=== PATIENT | male | born 1985 | race Caucasian/White ===

== ENCOUNTER 2019-01-28 18:30 | Emergency (ER) | payer SELFPAY ==
[2019-01-28 18:54] VITALS: BP 144/89; PULSE 85; RESP 14; TEMP 37.1; O2SAT 98; BMI 19.1
--- NOTE | 2019-01-28 19:08 | ED_ITS ---
HPI - Nausea/Vomiting/Diarrhea General Chief complaint: Nausea/Vomiting/Diarrhea Stated complaint: thinks food poisoning Time Seen by Provider: 01/28/19 18:54 Source: patient Mode of arrival: Ambulatory Limitations: no limitations History of Present Illness HPI Narrative: Patient is a 33-year-old male who presents with abdominal pain and diarrhea and vomiting ongoing for last 5-6 days. He says he initially woke up drenched in sweat she has for wet he had multiple episodes of large amount of diarrhea and loose stool. He also vomited numerous times. His he has continued to have episodes of diarrhea although it has tapered off. He says he has the urge to go on his just going a little bit today but that has happened 15 times more. He did have about 3 days where there was some blood mixed in his stool. He also vomited numerous times throughout some bright red blood as well but that has since stopped his no longer vomiting blood. He received prescription of Zofran from the [facility] yesterday that has seems to have helped his nausea and vomiting. However he still has intense lower abdominal pain and frequent urges. MD complaint: nausea, vomiting, diarrhea and abdominal pain Onset (ago): day(s) (5) Description of Vomiting: bilious and bloody Description of Diarrhea: watery and bloody (bright red) Associated Abdominal Pain: Yes Location of pain: diffuse Severity: severe Related Data Previous Rx's Medication Instructions Recorded ciprofloxacin HCl [Cipro] 500 mg PO BID #20 tab 01/28/19 ondansetron 4 mg PO Q8H PRN #10 tab 01/28/19 prochlorperazine maleate 5 mg PO TID PRN #10 tab 01/28/19 Allergies Allergy/AdvReac Type Severity Reaction Status Date / Time Sulfa (Sulfonamide Allergy Verified 01/28/19 18:54 Antibiotics) Review of Systems Review of Systems Narrative: GENERAL: Denies chills, fatigue, malaise, fever, sweats, travel HEENT: Denies sinus pain, ear pain, sore throat, difficulty swallowing, neck pain RESPIRATORY: Denies dyspnea, cough, wheezing, hemoptysis, sputum. CARDIOVASCULAR: Denies chest pain, palpitations, orthopnea, edema GASTROINTESTINAL: See HPI : Denies dysuria, frequency, incontinence, hematuria, urinary retention, flank pain. MUSCULOSKELETAL: Denies weakness, joint pain, or bony pain SKIN: No rash, no erythema, no pruritus NEUROLOGIC: Denies weakness, dizziness, headache, numbness, change in speech, confusion PSYCHIATRIC: No concerning psychosocial issues. 12 point review of systems is negative except for those stated above and HPI Patient History Medical/Surgical History Medical History Patient denies medical problems (Acute) Social History Smoking Status: Current every day smoker Family/Social History Social History Smoking Status: Current every day smoker alcohol intake frequency: 0-2 drinks per day Substance Use Type: does not use Exam Initial Vital Signs Initial Vital Signs: Vital Signs Temperature 98.8 F 01/28/19 18:54 Pulse Rate 85 01/28/19 18:54 Respiratory Rate 14 01/28/19 18:54 Blood Pressure 144/89 H 01/28/19 18:54 Pulse Oximetry 98 01/28/19 18:54 GENERAL: Thin young well-appearing male and in no acute distress. HEENT: Head atraumatic,EOMI, pupils reactive, face symmetric, moist mucous membranes CARDIOVASCULAR: Regular rate and rhythm without murmurs, rubs or gallops. RESPIRATORY: Breath sounds equal bilaterally, no wheezes rales or rhonchi. ABDOMEN: Soft, mild tenderness no guarding or rebound EXTREMITIES: Normal range of motion, no clubbing or edema. Neurovascularly intact NEUROLOGICAL: Alert and oriented x4.Normal gait and speech. Cranial nerves II through XII grossly intact. SKIN: Warm, dry, no laceration, no petechiae, no rashes or lesions. Course Orders Ordered: ED Orders 01/28/19 19:25 Complete Blood Count AUTO DIFF Stat Comprehensive Metabolic Panel Stat Lipase Stat 01/28/19 20:02 Stool Culture Stat 01/28/19 20:04 GI Panel (Film Array) Stat 01/28/19 20:15 Urine Microscopic Stat Discontinued Medications Acetaminophen (Tylenol) 975 mg PO NOW ONE Stop: 01/28/19 22:27 Last Admin: 01/28/19 22:52 Dose: 975 mg Documented by: NELLY Sodium Chloride (Normal Saline 0.9%) 1,000 mls @ 1,000 mls/hr IV BOLUS ONE Stop: 01/28/19 19:56 Last Infusion: 01/28/19 20:46 Dose: 0 mls/hr Documented by: Admin: 01/28/19 19:41 Dose: 1,000 mls/hr Documented by: CHRIS Ketorolac Tromethamine (Toradol) 30 mg IV NOW ONE Stop: 01/28/19 19:07 Last Admin: 01/28/19 19:42 Dose: 30 mg Documented by: CHRIS Levofloxacin (Levaquin) 500 mg PO NOW ONE Stop: 01/28/19 21:57 Last Admin: 01/28/19 22:52 Dose: 500 mg Documented by: NELLY Ondansetron HCl (Zofran) 4 mg IV NOW ONE Stop: 01/28/19 18:58 Last Admin: 01/28/19 19:41 Dose: 4 mg Documented by: CHRIS Ondansetron HCl (Zofran Odt Prepack) 1 bottle MISC SEEINSTR ONE Stop: 01/28/19 22:10 Last Admin: 01/28/19 22:52 Dose: 1 bottle Documented by: NELLY Pantoprazole Sodium (Protonix) 40 mg IV NOW ONE Stop: 01/28/19 19:07 Last Admin: 01/28/19 19:42 Dose: 40 mg Documented by: CHRIS Vital Signs Vital signs: Vital Signs - 8 hr 01/28/19 18:54 01/28/19 20:51 01/29/19 00:13 Temperature 98.8 F Pulse Rate 85 81 Respiratory Rate 14 18 Blood Pressure 144/89 H 123/71 Blood Pressure [Left Arm] 125/77 Pulse Oximetry 98 98 MDM - Nausea/Vomiting/Diarrhea Lab Data Attestation: I reviewed the patient's lab results. Result diagrams: 01/28/19 19:25 01/28/19 19:25 Labs: Lab Results 01/28/19 01/28/19 01/28/19 Range/Units 19:25 19:25 19:25 WBC 9.0 (4.5-11.0) X10^3/uL RBC 5.08 (4.5-5.9) X10^6/uL Hgb 15.9 (13.5-17.5) g/dL Hct 44.3 (41-53) % MCV 87.2 (80-100) fL MCH 31.3 (26-34) PG MCHC 35.9 (30-36) % RDW 12.4 (11.6-14.8) % Plt Count 99 L (150-400) X10^3/uL Neut % (Auto) 74.5 (50-75) % Lymph % (Auto) 9.8 L (25-40) % [place] % (Auto) 15.4 H (3-14) % Eos % (Auto) 0.0 L (2-4) % Baso % (Auto) 0.3 (0-2) % Neut # (Auto) 6700 (2023-9712) /uL Lymph # (Auto) 900 L (3255-7585) /uL [place] # (Auto) 1400 H (0-900) /uL Eos # (Auto) 0 (0-450) /uL Baso # (Auto) 0 (0-100) /uL Sodium 128 L (137-145) mmol/L Potassium 4.1 (3.4-5.1) mmol/L Chloride 92 L (98-107) mmol/L Carbon Dioxide 23 (22-32) mmol/L BUN 9 (9-20) mg/dL Creatinine 0.70 (0.66-1.25) mg/dL Estimated GFR > 60.0 (>60) mL/min BUN/Creatinine Ratio 12.9 (6-22) Glucose 108 H (70-100) mg/dL Calcium 9.0 (8.4-10.2) mg/dL Total Bilirubin 0.8 (0.2-1.3) mg/dL AST 273 H (17-59) IU/L ALT 68 (21-72) IU/L Alkaline Phosphatase 71 (38-126) U/L Total Protein 7.0 (6.3-8.2) g/dL Albumin 4.2 (3.5-5.0) g/dL Globulin 2.8 (1.7-4.1) g/dL Albumin/Globulin Ratio 1.5 (1.0-2.8) Lipase 489 H (23-300) U/L Urine RBC (0-5/HPF) Urine WBC (0-5/HPF) Amorphous Sediment Urine Bacteria (None) Ur Culture Indicated? Stl C. cayetanensis PCR (Not Detect) Stool Rotavirus (PCR) (Not Detect) Stool Adenovirus (PCR) (Not Detect) Stool Astrovirus (PCR) (Not Detect) Stool Cryptosporidium PCR (Not Detect) Stl E.coli Shiga Tox PCR (Not Detect) St Sh/Enteroin Ecoli PCR (Not Detect) Stool E coli O157 PCR Stl Enterotoxigenic E PCR (Not Detect) Stool EPEC (PCR) (Not Detect) Stl E. histolytica PCR (Not Detect) Stool Giardia Lamblia PCR (Not Detect) Stl P. shigelloides PCR (Not Detect) St Y.enterocolitica PCR (Not Detect) Stool Vibrio (PCR) (Not Detect) Stl Vibrio cholerae PCR (Not Detect) Stl Enteroaggr Ecoli PCR (Not Detect) Stl Norovirus GI/GII PCR (Not Detect) Campylobacter (PCR) (Not Detect) C. difficile Tox (PCR) (Not Detect) Salmonella (PCR) (Not Detect) 01/28/19 01/28/19 Range/Units 20:04 20:15 WBC (4.5-11.0) X10^3/uL RBC (4.5-5.9) X10^6/uL Hgb (13.5-17.5) g/dL Hct (41-53) % MCV (80-100) fL MCH (26-34) PG MCHC (30-36) % RDW (11.6-14.8) % Plt Count (150-400) X10^3/uL Neut % (Auto) (50-75) % Lymph % (Auto) (25-40) % [place] % (Auto) (3-14) % Eos % (Auto) (2-4) % Baso % (Auto) (0-2) % Neut # (Auto) (2749-2928) /uL Lymph # (Auto) (8148-3475) /uL [place] # (Auto) (0-900) /uL Eos # (Auto) (0-450) /uL Baso # (Auto) (0-100) /uL Sodium (137-145) mmol/L Potassium (3.4-5.1) mmol/L Chloride (98-107) mmol/L Carbon Dioxide (22-32) mmol/L BUN (9-20) mg/dL Creatinine (0.66-1.25) mg/dL Estimated GFR (>60) mL/min BUN/Creatinine Ratio (6-22) Glucose (70-100) mg/dL Calcium (8.4-10.2) mg/dL Total Bilirubin (0.2-1.3) mg/dL AST (17-59) IU/L ALT (21-72) IU/L Alkaline Phosphatase (38-126) U/L Total Protein (6.3-8.2) g/dL Albumin (3.5-5.0) g/dL Globulin (1.7-4.1) g/dL Albumin/Globulin Ratio (1.0-2.8) Lipase (23-300) U/L Urine RBC None seen (0-5/HPF) Urine WBC 1-5/hpf (0-5/HPF) Amorphous Sediment 1+ Urine Bacteria None seen (None) Ur Culture Indicated? Cult not indicated Stl C. cayetanensis PCR Not detected (Not Detect) Stool Rotavirus (PCR) Not detected (Not Detect) Stool Adenovirus (PCR) Not detected (Not Detect) Stool Astrovirus (PCR) Not detected (Not Detect) Stool Cryptosporidium PCR Not detected (Not Detect) Stl E.coli Shiga Tox PCR Not detected (Not Detect) St Sh/Enteroin Ecoli PCR Not detected (Not Detect) Stool E coli O157 PCR Not Reportable Stl Enterotoxigenic E PCR Not detected (Not Detect) Stool EPEC (PCR) Not detected (Not Detect) Stl E. histolytica PCR Not detected (Not Detect) Stool Giardia Lamblia PCR Not detected (Not Detect) Stl P. shigelloides PCR Not detected (Not Detect) St Y.enterocolitica PCR Not detected (Not Detect) Stool Vibrio (PCR) Not detected (Not Detect) Stl Vibrio cholerae PCR Not detected (Not Detect) Stl Enteroaggr Ecoli PCR Not detected (Not Detect) Stl Norovirus GI/GII PCR Not detected (Not Detect) Campylobacter (PCR) Not detected (Not Detect) C. difficile Tox (PCR) Not detected (Not Detect) Salmonella (PCR) Detected H (Not Detect) Urine Dip Bedside Urine Glucose Negative Bedside Urine Bilirubin - Negative Bedside Urine Ketone ++ 40 Urine Specific [place] 1.010 Bedside Urine Occult Blood + Bedside Urine pH 6.5 Bedside Urine Protein + 30 Bedside Urine Urobilinogen - Negative Bedside Urine Nitrite - Negative Bedside Urine Leukocytes - Negative Esterase MDM Narrative Medical decision making narrative: Patient has been ambulatory to the restroom multiple times for diarrhea. Small amount he actually is positive for salmonella. 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 At this time will start him on antibiotics it has been ongoing for 6 days and he continues to have more than 10 bowel movements is a day. He has no leukocytosis or fever. Hemoglobin and hematocrit are stable. He is noted to be slightly hyponatremic are thought to be from hypovolemia. He is given a L of fluid and tolerating oral fluids well. He does still have some abdominal cramping which is to be expected with gastroenteritis. Toradol did help eat given a dose of Tylenol as well. Discharge Plan Departure Patient Disposition: Home Clinical Impression: Salmonella gastroenteritis Discharge Date/Time: 01/29/19 00:14 Instructions: DI for Bacterial Gastroenteritis -- Adult Activity Restrictions/Additional Instructions: *You have been diagnosed with Salmonella gastroenteritis *What to do: Increase fluid intake something like Gatorade is recommended *Continue to take medications as directed Zofran 4 mg every 8 hours if needed for nausea or vomiting. Compazine 5 mg every 6-8 hours if needed for nausea vomiting Cipro 500 mg twice a day for 10 days *Follow up with your primary care provider in 2-3 days *Return to ER if you should have increased abdominal pain, persistent vomiting, inability to tolerate fluids, worsening diarrhea or any new, worsening or concerning symptoms Prescriptions: New ondansetron 4 mg tablet,disintegrating 4 mg PO Q8H PRN (Reason: nausea and vomiting) Qty: 10 RF: 0 prochlorperazine maleate 5 mg tablet 5 mg PO TID PRN (Reason: nausea and vomiting) Qty: 10 RF: 0 ciprofloxacin HCl [Cipro] 500 mg tablet 500 mg PO BID Qty: 20 RF: 0 Stand Alone Forms: Work Release Note
[2019-01-28] MEDS: SODIUM CHLORIDE 0.9% 1,000 ML 1000 ML IV (19:41)
[2019-01-28] MEDS: ONDANSETRON 4 MG/2 ML INJ IV (19:41)
[2019-01-28 19:42] LABS: Add Manual Diff / Slide Review NO; Basophils Absolute Auto 0 /uL (0-100); Basophils Percent Auto 0.3 % (0-2); Eosinophils Absolute Auto 0 /uL (0-450); Hematocrit 44.3 % (41-53); Hemoglobin 15.9 g/dL (13.5-17.5); Lymphocytes Absolute Auto 900 /uL (1100-4500); Lymphocytes Percent Auto 9.8 % (25-40); Mean Corpuscular HGB Conc 35.9 % (30-36); Mean Corpuscular Hemoglobin 31.3 PG (26-34); Mean Corpuscular Volume 87.2 fL (80-100); Monocytes Absolute Auto 1400 /uL (0-900); Monocytes Percent Auto 15.4 % (3-14); Neutrophils Absolute Auto 6700 /uL (1500-7000); Neutrophils Percent Auto 74.5 % (50-75); Platelet Count 99 X10^3/uL (150-400); Red Blood Cell Count 5.08 X10^6/uL (4.5-5.9); Red Cell Distribution Width 12.4 % (11.6-14.8)
[2019-01-28] MEDS: KETOROLAC 60 MG/2 ML VIAL 30 MG IV (19:42)
[2019-01-28] MEDS: PANTOPRAZOLE 40 MG VIAL IV (19:42)
[2019-01-28 19:53] LABS: Alanine Aminotransferase 68 IU/L (21-72); Albumin 4.2 g/dL (3.5-5.0); Albumin Globulin Ratio 1.5 (1.0-2.8); Alkaline Phosphatase 71 U/L (38-126); Aspartate Aminotransferase 273 IU/L (17-59); BUN Creatinine Ratio 12.9 (6-22); Bilirubin Total 0.8 mg/dL (0.2-1.3); Blood Urea Nitrogen 9 mg/dL (9-20); Carbon Dioxide 23 mmol/L (22-32); Chloride 92 mmol/L (98-107); Estimated Glomerular Filt Rate > 60.0 mL/min (>60); Globulin 2.8 g/dL (1.7-4.1); Glucose 108 mg/dL (70-100); HEMOLYSIS 34 (0-50); Potassium 4.1 mmol/L (3.4-5.1); Sodium 128 mmol/L (137-145)
[2019-01-28 19:54] LABS: Lipase 489 U/L (23-300)
[2019-01-28 20:28] LABS: Bacteria Urine None Seen; RBC Urine None Seen (0-5/HPF)
[2019-01-28 20:51] VITALS: BP 125/77
[2019-01-28 20:57] LABS: Amorphous Sediment Urine 1+; Culture Indicated Urine Cult Not Indicated; WBC Urine 1-5/HPF (0-5/HPF)
[2019-01-28 21:37] LABS: Campylobacter Not Detected (Not Detect); Clostridium difficile toxin AB Not Detected (Not Detect); Plesiomonsa shigelloides Not Detected (Not Detect)
[2019-01-28 21:38] LABS: Enteroaggregative E.coli Not Detected (Not Detect); Enteropathogenic E.coli Not Detected (Not Detect); Enterotoxigenic E.coli It/st Not Detected (Not Detect); Shiga-like toxin-prod E.coli Not Detected (Not Detect); Shigella/Enteroinvasive E.coli Not Detected (Not Detect); Vibrio Not Detected (Not Detect); Vibrio cholerae Not Detected (Not Detect); Yersinia enterocolitica Not Detected (Not Detect)
[2019-01-28 21:39] LABS: Adenovirus F 40/41 Not Detected (Not Detect); Astrovirus Not Detected (Not Detect); Cryptosporidium Not Detected (Not Detect); Cyclospora cayetanensis Not Detected (Not Detect); Entamoeba histolytica Not Detected (Not Detect); Giardia lamblia Not Detected (Not Detect); Norovirus GI/GII Not Detected (Not Detect); Rotavirus A Not Detected (Not Detect)
[2019-01-28] MEDS: levoFLOXacin 250 MG TABLET 500 MG PO (22:52)
[2019-01-28] MEDS: ONDANSETRON 4 MG ODT PREPACK 1 BOTTLE MISC (22:52)
[2019-01-28] MEDS: ACETAMINOPHEN 325 MG TABLET 975 MG PO (22:52)
[2019-01-29 00:13] VITALS: BP 123/71; PULSE 81; RESP 18; O2SAT 98
[2019-01-29 07:25] LABS: Salmonella Detected (Not Detect)
== END 2019-01-29 00:14 | disposition home or self-care (01) ==
PROVIDERS: Emergency Provider Emergency Medicine
DX: A02.0 Salmonella enteritis (principal)
CPT/HCPCS: 36415; 80053; 81003; 81015; 83690; 85025; 87045; 87177; 87507; 87899; 96361; 96374; 96375; 99283; 99284; C9113; J1885; J2405

== ENCOUNTER → 2020-07-23 10:28 | Outpatient (CLI) | payer OTHER, SELFPAY ==
[2020-07-23 19:36] LABS: Add Manual Diff / Slide Review NO; Basophils Absolute Auto 0 /uL (0-100); Basophils Percent Auto 0.3 % (0-2); Eosinophils Absolute Auto 0 /uL (0-450); Eosinophils Percent Auto 0.7 % (2-4); Hematocrit 38.3 % (41-53); Hemoglobin 13.1 g/dL (13.5-17.5); Lymphocytes Absolute Auto 1000 /uL (1100-4500); Lymphocytes Percent Auto 17.3 % (25-40); Mean Corpuscular HGB Conc 34.2 % (30-36); Mean Corpuscular Hemoglobin 31.4 PG (26-34); Mean Corpuscular Volume 91.7 fL (80-100); Monocytes Absolute Auto 400 /uL (0-900); Monocytes Percent Auto 7.5 % (3-14); Neutrophils Absolute Auto 4400 /uL (1500-7000); Neutrophils Percent Auto 74.2 % (50-75); Platelet Count 223 X10^3/uL (150-400); Red Blood Cell Count 4.17 X10^6/uL (4.5-5.9)
[2020-07-23 19:44] LABS: Total Iron Binding Capacity 309 ug/dL (261-462)
[2020-07-23 20:12] LABS: Ferritin 159 ng/mL (18-464)
== END ==
PROVIDERS: PCP Physician Assistant; Visit Provider Physician Assistant
DX: D64.9 Anemia, unspecified (principal)
CPT/HCPCS: 82728; 83550; 85025

== ENCOUNTER → 2020-08-22 10:53 | Outpatient (CLI) | payer OTHER, SELFPAY ==
[2020-08-22 18:54] LABS: Add Manual Diff / Slide Review NO; Basophils Absolute Auto 0 /uL (0-100); Basophils Percent Auto 0.7 % (0-2); Eosinophils Absolute Auto 100 /uL (0-450); Eosinophils Percent Auto 2.3 % (2-4); Hematocrit 36.8 % (41-53); Hemoglobin 12.5 g/dL (13.5-17.5); Lymphocytes Absolute Auto 1000 /uL (1100-4500); Mean Corpuscular Hemoglobin 31.2 PG (26-34); Mean Corpuscular Volume 91.8 fL (80-100); Monocytes Absolute Auto 500 /uL (0-900); Neutrophils Absolute Auto 4200 /uL (1500-7000); Platelet Count 240 X10^3/uL (150-400); Red Blood Cell Count 4.01 X10^6/uL (4.5-5.9); Red Cell Distribution Width 12.9 % (11.6-14.8); White Blood Cell Count 5.9 X10^3/uL (4.5-11.0)
[2020-08-22 19:05] LABS: Alanine Aminotransferase 23 IU/L (<50); Albumin 4.2 g/dL (3.5-5.0); Albumin Globulin Ratio 1.8 (1.0-2.8); Alkaline Phosphatase 96 U/L (38-126); Aspartate Aminotransferase 30 IU/L (17-59); Bilirubin Total 0.3 mg/dL (0.2-1.3); Blood Urea Nitrogen 9 mg/dL (9-20); Calcium 8.8 mg/dL (8.4-10.2); Carbon Dioxide 27 mmol/L (22-32); Chloride 100 mmol/L (98-107); Estimated Glomerular Filt Rate > 60.0 mL/min (>60); Globulin 2.3 g/dL (1.7-4.1); Glucose 95 mg/dL (70-100); HEMOLYSIS < 15 (0-50); Potassium 4.2 mmol/L (3.4-5.1); Sodium 135 mmol/L (137-145); Total Protein 6.5 g/dL (6.3-8.2)
[2020-08-22 19:14] LABS: Total Iron Binding Capacity 299 ug/dL (261-462)
[2020-08-22 19:37] LABS: Ferritin 162 ng/mL (18-464)
== END ==
PROVIDERS: PCP Physician Assistant; Referring Provider Physician Assistant; Visit Provider Physician Assistant
DX: D64.9 Anemia, unspecified (principal); F10.21 Alcohol dependence, in remission
CPT/HCPCS: 80053; 82728; 83550; 85025

== ENCOUNTER → 2020-09-06 13:45 | Outpatient (CLI) | payer OTHER, SELFPAY ==
[2020-09-06 20:10] LABS: Occult Blood 1 Negative (Negative)
== END ==
PROVIDERS: PCP Physician Assistant; Visit Provider Physician Assistant
DX: D64.9 Anemia, unspecified (principal)
CPT/HCPCS: 82270

== ENCOUNTER → 2020-09-18 11:36 | Outpatient (CLI) | payer OTHER, SELFPAY ==
[2020-09-18 19:28] LABS: Add Manual Diff / Slide Review NO; Basophils Absolute Auto 0 /uL (0-100); Basophils Percent Auto 0.4 % (0-2); Eosinophils Absolute Auto 0 /uL (0-450); Eosinophils Percent Auto 0.7 % (2-4); Hemoglobin 13.5 g/dL (13.5-17.5); Lymphocytes Absolute Auto 1100 /uL (1100-4500); Lymphocytes Percent Auto 19.8 % (25-40); Mean Corpuscular HGB Conc 33.7 % (30-36); Mean Corpuscular Hemoglobin 30.9 PG (26-34); Mean Corpuscular Volume 91.6 fL (80-100); Monocytes Absolute Auto 500 /uL (0-900); Monocytes Percent Auto 8.7 % (3-14); Neutrophils Absolute Auto 3900 /uL (1500-7000); Neutrophils Percent Auto 70.4 % (50-75); Platelet Count 214 X10^3/uL (150-400); Red Blood Cell Count 4.37 X10^6/uL (4.5-5.9); Red Cell Distribution Width 13.6 % (11.6-14.8); White Blood Cell Count 5.5 X10^3/uL (4.5-11.0)
[2020-09-18 19:48] LABS: HEMOLYSIS < 15 (0-50); Iron 163 ug/dL (49-181)
[2020-09-18 20:08] LABS: Percent Iron Saturation 52 % (20-50); Total Iron Binding Capacity 313 ug/dL (261-462); Transferrin 258 mg/dL (206-381)
[2020-09-20 04:06] LABS: HIV 1 & 2 Ab/Ag 4th Gen Combo NEGATIVE (NEGATIVE)
== END ==
PROVIDERS: PCP Physician Assistant; Visit Provider Physician Assistant
DX: D64.9 Anemia, unspecified (principal); D72.810 Lymphocytopenia
CPT/HCPCS: 83540; 83550; 85025; 87389